=== PATIENT | male | born 1980 | race Caucasian/White ===

== ENCOUNTER 2020-08-13 23:56 | Emergency (ER) | payer OTHER ==
[2020-08-14 00:03] VITALS: BMI 26.6
[2020-08-14] MEDS ORDERED: methylPREDNISolone NA SUCC 125 MG/2 ML VIAL IVPB ONE (00:32)
[2020-08-14 00:36] VITALS: BP 128/93; PULSE 84; TEMP 98.1
[2020-08-14] MEDS ORDERED: methylPREDNISolone NA SUCC 125 MG/2 ML VIAL ONE (00:41)
== END 2020-08-14 02:14 | disposition home or self-care (01) ==
LOC: FER 23:56
PROC: 3E033NZ Introduction of Analgesics, Hypnotics, Sedatives into Peripheral Vein, Percutaneous Approach (ICD-10-PCS; principal; 2020-08-14)
DX: T78.40XA Allergy, unspecified, initial encounter (principal)
CPT/HCPCS: 99284-25

== ENCOUNTER 2020-08-14 11:05 | Emergency (ER) | payer OTHER ==
[2020-08-14 11:13] VITALS: TEMP 99; BMI 26.6
[2020-08-14 12:13] LABS: HEMATOCRIT 40.5 % (35.4-49); HEMOGLOBIN 13.5 GM/dl (11.7-16.9); MCHC 33.4 g/dl (32.0-35.9); MEAN CELL VOLUME 92.9 fl (80-96); MEAN PLT VOLUME 8.5 fl (7.5-11.1); PLATELET COUNT 215 K/MM3 (134-434); RBC 4.36 M/mm3 (4.00-5.60); RDW 13.4 % (11.9-15.9); WHITE BLOOD COUNT 5.3 K/mm3 (4.0-10.8)
[2020-08-14 12:18] LABS: ALBUMIN 4.6 g/dl (3.4-5.0); BILIRUBIN,TOTAL 0.9 mg/dl (0.2-1); CALCIUM 9.2 mg/dl (8.5-10); CREATININE 0.8 mg/dl (0.55-1.3); POTASSIUM 3.9 mmol/L (3.5-5.1); TOT PROT 7.5 g/dl (6.4-8.2)
[2020-08-14 13:17] LABS: PLATELET ESTIMATE ADEQUATE
[2020-08-14 15:28] VITALS: BP 118/75; PULSE 82
== END 2020-08-14 15:40 | disposition home or self-care (01) ==
LOC: FER 11:05
DX: R00.2 Palpitations (principal); R07.9 Chest pain, unspecified
CPT/HCPCS: 36415; 71046-TC-FY; 80053; 82550; 84436; 84443; 84479; 84484; 85025; 93005; 99285-25